=== PATIENT | female | born 1950 | race Caucasian/White ===

== ENCOUNTER 2021-01-06 11:14 | Outpatient (CLI) | payer MEDICARE, SELFPAY ==
--- NOTE | 2021-01-06 11:25 | MM_ITS ---
WS: [id number] BILATERAL DIGITAL SCREENING MAMMOGRAPHY WITH CAD CLINICAL INFORMATION: SCREENING HISTORY: Screening mammogram. No current complaints. COMPARISON: TECHNIQUE: Bilateral CC and MLO views. FINDINGS: Scattered fibroglandular densities bilaterally. No suspicious focal mass, asymmetry, calcifications, or architectural distortion. No evidence of malignancy. Punctate and lucent centered calcifications. Eggshell Calcifications. MM/[place] [id number] IMPRESSION: BI-RADS: 2-Benign FOLLOW UP: 1 Year Follow-up Recommend return to annual screening mammography.
== END 2021-01-06 11:15 | disposition home or self-care (01) ==
LOC: RADSHAW 11:20
PROVIDERS: PCP Internal Medicine; Visit Provider Internal Medicine
DX: Z12.31 Encounter for screening mammogram for malignant neoplasm of breast (principal)
CPT/HCPCS: 77067

== ENCOUNTER → 2021-03-23 15:00 | Outpatient (BNVA) | payer MEDICARE, SELFPAY | PROVIDERS: PCP Internal Medicine; Visit Provider Nurse Practitioner | DX: Z20.822 Contact with and (suspected) exposure to COVID-19 (principal) | CPT/HCPCS: 87635 ==

== ENCOUNTER 2021-09-23 15:09 | Observation (INO) | payer MEDICARE, MEDICAID, SELFPAY ==
[2021-09-22 11:52] VITALS: BMI 25.7
[2021-09-23] VITALS (12 sets, daily range): BP systolic 118–165; BP diastolic 62–84; PULSE 72–87; RESP 12–19; TEMP 36.3–36.8; O2SAT 92–99; BMI 25.7
[2021-09-23] MEDS: sodium chloride 0.9% 1,000 ML 30 ML IV (09:43)
[2021-09-23] MEDS: ketorolac 30 mg/mL INJ IVP ×3 (09:44→21:57)
[2021-09-23] MEDS: gabapentin 300 mg Capsule PO (09:44)
[2021-09-23] MEDS: phenazopyridine 100 mg Tablet 200 MG PO (09:44)
[2021-09-23] MEDS: CELEcoxib 200 mg Capsule 400 MG PO (09:44)
[2021-09-23 09:49] LABS: Basophils # 0.1 10^3/uL (0.0-0.1); Basophils % 0.9 %; Eosinophils # 0.4 10^3/uL (0.0-0.8); Hematocrit 45.3 % (37.0-47.0); Hemoglobin 14.2 g/dL (11.5-15.3); Lymphocytes # 2.3 10^3/uL (0.8-4.8); Lymphocytes % 26.1 %; Mean Corpuscular HGB Conc 31.3 g/dL (30.0-36.0); Mean Corpuscular Hemoglobin 27.5 pg (28.0-34.0); Mean Corpuscular Volume 87.6 fl (81-99); Monocytes # 0.5 10^3/uL (0.2-0.9); Monocytes % 6.1 %; Neutrophils % 62.3 %; Nucleated Red Blood Cells % 0 %; Platelet Count 264 10^3/cmm (130-400); Red Blood Count 5.17 10^6/uL (4.1-5.3); Red Cell Distribution Width 14.3 % (12.1-15.1); White Blood Count 8.8 10^3/uL (4.0-10.0)
[2021-09-23 09:49] LABS: Glucose Point of Care 112 mg/dL (70-110)
[2021-09-23] MEDS: scopolamine 1.5 Patch 1 PATCH TRANSDERMA (09:50)
[2021-09-23] MEDS: acetaminophen 1,000 MG/100 ML PIGGYBACK 400 MG IV (10:01)
--- NOTE | 2021-09-23 10:25 | ECG_ITS ---
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 Measurements Intervals [place] Rate: P: ID: QRS: QRSD: T: QT: QTc: Interpretive Statements SINUS RHTYHM Compared to ECG 06/17/2015 10:02:23 T-wave abnormality no longer present Myocardial infarct finding no longer present Electronically Signed On 09-23-2021 17:59:47 CDT by Don Calhoun M.D. [id number]
--- NOTE | 2021-09-23 10:29 | ANES.PREANE2 ---
Pre-Anesthetic Assessment Height/Weight: Height 1.68 m Weight 72.121 kg Temp Pulse Resp BP Pulse Ox 97.4 F L 87 17 165/84 96 09/23/21 09:19 09/23/21 09:19 09/23/21 09:19 09/23/21 09:19 09/23/21 09:19 Preop Diagnosis: uterine prolapse, cystocele, stress incontinence Operation Date: 09/23/21 11:10 Proposed Procedures p Laparoscopic assisted vaginal hysterectomy, bilateral salpingo-oophorectomy 28384, anterior and posterior repair 17547, mid urethral sling 00669,N39.3,N81.2(Not Applicable) - Dimple Perez MD s Anterior Repair(Not Applicable) - Dimple Perez MD s Posterior Repair(Not Applicable) - Dimple Perez MD s Sling(Not Applicable) - Dimple Perez MD Familial anesthetic complications: None Was Beta Shi taken within 24 hours: N/A Was Clonidine taken within 24 hours: N/A Last intake: Intake Last Liquid Date 09/22/21 Last Liquid Time 20:30 Last Solid Date 09/22/21 Last Solid Time 20:30 Social No alcohol and No tobacco Exam alert, oriented x 3, clear to auscultation bilaterally and regular rate & rhythm Airway Submandibular: within normal limits Cervical ROM: within normal limits Mallampati: Class I Dentition: false History/ROS No significant complaints Pulmonary None reported CV/HEM Hypertension stress incontinence uterine prolapse cystocele Hepatic None reported GI None reported Metabolic Diabetes Mellitus [facility] None reported Neuropsych Depression Anesthetic Plan ASA status: 2 Anesthesia: Anesthesia Evaluation and General Other: We discussed risk and benefits of general anesthesia including PONV, sore throat (sometimes severe), corneal abrasion, positioning and peripheral nerve injuries, life threatening allergic reaction, post operative ICU admission requiring prolonged intubation, stroke, heart attack, , and rare incidences of recall. Patient consents to proceed with general anesthesia. Risk of > 500 ml blood loss (7ml/kg in children): No Other Pertinent Information Pre op EKG pending Medications/Allergies Home Medications Medication Instructions Recorded Confirmed Last Taken Type atorvastatin 20 mg tablet 20 mg PO DAILY 04/28/21 09/23/21 09/22/21 08:30 History cetirizine 10 mg capsule (Allergy 10 mg PO DAILY PRN 04/28/21 09/23/21 09/22/21 08:30 History Relief (cetirizine)) empagliflozin 10 mg tablet 10 mg PO DAILY 04/28/21 09/23/21 09/22/21 08:30 History (Jardiance) gabapentin 100 mg capsule 100 mg PO 1XD 04/28/21 09/23/21 09/22/21 08:30 History levothyroxine 50 mcg tablet 50 mcg PO DAILY 04/28/21 09/23/21 09/22/21 08:30 History (Euthyrox) lisinopril 20 1 tab PO DAILY 04/28/21 09/23/21 09/22/21 08:30 History mg-hydrochlorothiazide 25 mg tablet metformin 1,000 mg tablet 1,000 mg PO BID 04/28/21 09/23/21 09/22/21 08:30 History nortriptyline 50 mg capsule 50 mg PO DAILY 04/28/21 09/23/21 09/22/21 08:30 History omeprazole 40 mg capsule,delayed 40 mg PO DAILY 04/28/21 09/23/21 09/23/21 08:30 History release clobetasol 0.05 % topical ointment 1 applic TOPICAL BID 14 Days #60 g 05/07/21 09/23/21 09/22/21 Rx triamcinolone acetonide 0.1 % 1 applic TOPICAL BID #80 g 05/07/21 09/23/21 Unknown Rx topical ointment liraglutide 0.6 mg/0.1 mL (18 mg/3 1.2 mg SUBCUT DAILY 07/08/21 09/23/21 09/22/21 08:30 History mL) subcutaneous pen injector (Victoza 2-Omar) cyclobenzaprine 10 mg tablet 10 mg PO BEDTIME tab 08/25/21 09/23/21 09/21/21 08:30 History aspirin 81 mg tablet 81 mg PO DAILY 09/22/21 09/23/21 09/22/21 08:30 History insulin degludec 200 unit/mL (3 70 unit SUBCUT DAILY 09/22/21 09/23/21 09/22/21 08:30 History mL) subcutaneous pen (Tresiba FlexTouch U-200 insulin) Allergies Allergy/AdvReac Type Severity Reaction Status Date / Time insulin glargine Allergy rash Verified 09/23/21 09:29 [From Lantus U-100 Insulin] prinizide Allergy rash Uncoded 09/23/21 09:29 Current Medications Generic Name Dose Route Start Last Admin Trade Name Freq PRN Reason Stop Dose Admin Sodium Chloride 1,000 mls @ 30 mls/hr 09/23/21 09:15 09/23/21 09:43 Sodium Chloride 0.9% IV 09/24/21 09:14 30 mls/hr .Q24H WENCESLAO Administration PFSH Anesthesia Medical History Depression Diabetes Essential (primary) hypertension Hyperlipidemia Surgical History History of cholecystectomy History of tubal ligation 1985 Family History Sister Breast cancer Diabetes Hypertension Mother Diabetes Heart disease Hypercholesteremia Hypertension Stroke Brother Diabetes Hypercholesteremia Hypertension Denies family history of Colon cancer Ovarian cancer Bleeding disorder Uterine cancer Thyroid disease Data Anesthesia : 09/23/21 09:35 09/23/21 09:35 Short CBC 09/23/21 Range/Units 09:35 WBC 8.8 (4.0-10.0) 10^3/uL Hgb 14.2 (11.5-15.3) g/dL Hct 45.3 (37.0-47.0) % MCV 87.6 (81-99) fl Plt Count 264 (130-400) 10^3/cmm Neut % (Auto) 62.3 % Neut # (Auto) 5.50 (1.8-7.7) 10^3/uL BMP 09/23/21 09:35 Sodium Cancelled Potassium Cancelled Chloride Cancelled Carbon Dioxide Cancelled BUN Cancelled Creatinine Cancelled Glucose Cancelled Calcium Cancelled Blood Bank 09/23/21 09:35 Blood Type O Positive Rho(D) Type Positive Cardiac Studies: No Data to Display
[2021-09-23 11:15] LABS: Anion Gap 11.4 (5-19); Blood Urea Nitrogen 18 mg/dL (8-23); Calcium 9.2 mg/dL (8.5-10.5); Carbon Dioxide 31 mmol/L (22-29); Chloride 104 mmol/L (98-107); Glucose 120 mg/dL (65-115); Osmolality Calculated 297 mOsm/kg (285-295); Potassium 4.4 mmol/L (3.5-5.1); Sodium 142 mmol/L (136-145)
--- NOTE | 2021-09-23 12:04 | W.PM.OPSUD ---
Surgery/Procedure H&P Update DATE OF PROCEDURE: September 23, 2021 DATE H&P PERFORMED: 09/19/21 H&P UPDATE INFORMATION: I have reviewed H&P completed within last 30 days, I have examined patient prior to procedure and No changes to prior documentation PREOP DIAGNOSIS: uterine prolapse, cystocele, stress incontinence PLANNED PROCEDURE: Operation Date: 09/23/21 11:10 Proposed Procedures p Laparoscopic assisted vaginal hysterectomy, bilateral salpingo-oophorectomy 19996, anterior and posterior repair 25213, mid urethral sling 61525,N39.3,N81.2(Not Applicable) - Dimple Perez MD s Anterior Repair(Not Applicable) - Dimple Perez MD s Posterior Repair(Not Applicable) - Dimple Perez MD s Sling(Not Applicable) - Dimple Perez MD Related Problem List Diagnoses (1) Stress incontinence: (2) Uterine prolapse: (3) Cystocele:
[2021-09-23] MEDS: vasopressin 20 unit/mL INJ INJECTION (14:35)
--- NOTE | 2021-09-23 14:44 | P.OP_ITS ---
Operative Report Date of procedure: September 23, 2021 Pre-op diagnosis: Preop Diagnosis uterine prolapse, cystocele, stress incontinence Post-op diagnosis: same Post-op findings: enlarged uterus, normal appearing tubes and ovaries Procedure done: LAVH, BSO, cystoscopy Specimens removed/disposition: Uterus, tubes and ovaries to pathology Surgeon: Dimple Perez Anesthesia: General Estimated blood loss (mL): 50 IV fluids (mL): 1,200 Urine output (mL): 300 Complications: none Condition: stable Disposition: floor Procedure: The patient was taken to the operating room where general anesthesia was administered and found to be adequate. She was prepped and draped in the normal sterile fashion in the dorsal lithotomy position in [facility]. A Grider catheter was placed. A weighted speculum was placed into the vagina and the anterior lip of the cervix was grasped with a single tooth tenaculum. The Zumi uterine manipulator was placed. The weighted speculum was removed. The gloves were changed and attention was turned to the abdomen. A 5 mm supraumbilical incision was made. Using a 5 mm port with the camera, the port was placed into the abdomen. The abdomen was insufflated. Two low, lateral 5 mm ports were placed on the left and right under direct visualization from the camera. The right tube was grasped and elevated. Using the laparoscopic cautery, the infundibulopelvic ligament was cauterized and I continued to cauterized up to the uterus. The uteroovarian ligament was cauterized and the tube and ovary dropped onto the anterior of the uterus. The left was performed in the same way. The uteroovarian ligaments as well as the round ligaments were ligated. Attention was then turned to the vaginal portion of the procedure. The weighted speculum was placed into the vagina. The zumi manipulator was removed. The single tooth tenaculum was removed and replaced with the annie's tenaculum. 10 mL of dilute Pitressin was injected at the vesicovaginal junction. A circumferential incision was made at the vesicovaginal junction and the vaginal mucosa reflected cephalad. The posterior peritoneum was entered sharply with the Metzenbaum scissors and the long weighted speculum replaced. Using the [place] clamps the uterosacral ligaments were clamped cut and suture- ligated. The anterior peritoneum was entered sharply with the metzenbaum scissors. Then sequentially the uterine arteries and cardinal ligaments were clamped cut and suture-ligated. A single-tooth tenaculum was used to deliver the uterus. The remaining segement of the utero-ovarian ligaments were clamped cut and suture-ligated bilaterally and the specimen was removed. There was good hemostasis with only mild bleeding from the cuff. The peritoneum was closed with a pursestring using 2-0 Vicryl. The vaginal cuff was closed with 0 Vicryl in a running locked pattern incorporating the uterosacral ligaments into the lateral aspects of the vaginal cuff. The Grider catheter was removed and the cystoscope advanced into the bladder. The patient was given pyridium and bilateral spill was noted. There were no injuries or deficits noted in the bladder. The cystoscope was removed and the Grider was replaced. The previous cystocele was significantly smaller post surgery. The was no incontinence post hysterectomy as well. Vaginal packing was placed for good hemostasis. The gloves and gowns were changed and attention was turned to the abdomen. The ports were closed with 2-0 monocryl with skin glue. The patient tolerated the procedure well. Sponge lap and needle counts were correct x3. She was taken to the recovery room in stable condition.
--- NOTE | 2021-09-23 15:10 | PC.NURSE ---
1458 bilateral scds on pump and pump working.
--- NOTE | 2021-09-23 15:37 | ANE.PACU2 ---
Inpatient post-anesthesia follow up: Airway intact: Yes Vital signs: Temperature 97.3 F Pulse Rate 80 Respiratory Rate 16 Blood Pressure 133/70 Pulse Oximetry 92 Oxygen Delivery Me thod Nasal Cannula Oxygen Flow Rate 2 Fraction of Inspir ed Oxygen Hydration adequate: Yes Nausea and vomiting: No Pain level: 1 Mental status: Baseline
[2021-09-23] MEDS: dextrose 5%-lactated ringers 1,000 ML 125 ML IV (17:23)
[2021-09-23] MEDS: metformin 500 mg Tablet 1000 MG PO (17:23)
[2021-09-23] MEDS: HYDROcodone-acetaminophen 5-325 mg Tablet PO ×2 (17:24→18:52)
[2021-09-23] MEDS: docusate sodium 100 mg Capsule PO (17:24)
[2021-09-23] MEDS: gabapentin 100 mg Capsule PO (21:58)
[2021-09-23 22:28] LABS: Glucose Point of Care 258 mg/dL (70-110)
[2021-09-23] MEDS: insulin lispro 100 unit/1 mL SUBCUT (22:40)
[2021-09-24] MEDS: ketorolac 30 mg/mL INJ IVP (03:56)
[2021-09-24 04:21] VITALS: BP 106/90; PULSE 79; TEMP 36.8; O2SAT 93
[2021-09-24 06:33] LABS: Hematocrit 35.3 % (37.0-47.0); Hemoglobin 11.5 g/dL (11.5-15.3); Mean Corpuscular HGB Conc 32.6 g/dL (30.0-36.0); Mean Corpuscular Hemoglobin 27.8 pg (28.0-34.0); Mean Corpuscular Volume 85.3 fl (81-99); Mean Platelet Volume 11.3 fL (7.4-10.4); Platelet Count 248 10^3/cmm (130-400); Red Blood Count 4.14 10^6/uL (4.1-5.3); Red Cell Distribution Width 14.4 % (12.1-15.1); White Blood Count 14.2 10^3/uL (4.0-10.0)
--- NOTE | 2021-09-24 10:08 | PM.DCS ---
Discharge Providers Date of Admission: 09/23/21 15:09 Date of Discharge: September 24, 2021 Attending Provider at Admission: Dimple Perez MD Attending Provider at Discharge: Dimple Perez MD Primary Care Provider: Jacque Moreno MD Diagnoses at Discharge Discharge Diagnosis (1) Stress incontinence: Status: Acute (2) Uterine prolapse: Status: Acute (3) Cystocele: Status: Acute Hospital Course Hospital Course The patient was admitted for surgery. She did well postoperatively and was ready for discharge on day #1 Physical Exam Narrative: no concerns this morning Const: COMMON NORMALS: no acute distress, average body habitus, patient oriented x3, no limitations, healthy appearing, alert and well nourished GENERAL APPEARANCE: cooperative, comfortable, well kempt and well developed ORIENTATION/CONSCIOUSNESS: Yes awake, Yes oriented to person, Yes oriented to place and Yes oriented to time Resp: COMMON NORMALS: normal respiratory effort EFFORT & INSPECTION: Yes able to speak in complete sentences GI: COMMON NORMALS: Soft to palpation and non-tender PALPATION: Yes Soft to palpation Extremity: COMMON NORMALS: no calf tenderness Neuro: COMMON NORMALS: patient oriented x3 SENSORIUM/ORIENTATION: Yes alert, Yes oriented to person, Yes oriented to place and Yes oriented to time Psych: APPEARANCE: Yes well kempt Urinary Catheter Management: Grider: Cath Placed During This Visit: yes, but has since been removed by the nurse Reason for Continuing Indwelling Catheter: Decision to DC Catheter Urinary Catheter Date of Insertion: 09/23/21 Urinary Catheter Time of Insertion: 12:40 Date Urinary Catheter Removed: 09/24/21 Time Urinary Catheter Discontinued: 06:10 Discharge Data Studies Completed and Pending Pending at discharge Category Date Time Status ES surgery / GI images Routine Exams 09/23/21 10:49 Taken Urine Culture Routine Lab 09/23/21 12:40 Received Pathology: Surgical [PTH] Routine Pth 09/23/21 14:46 Received Laboratory Results WBC 14.2 10^3/uL (4.0-10.0) H 09/24/21 06:01 RBC 4.14 10^6/uL (4.1-5.3) 09/24/21 06:01 Hgb 11.5 g/dL (11.5-15.3) 09/24/21 06:01 Hct 35.3 % (37.0-47.0) L 09/24/21 06:01 MCV 85.3 fl (81-99) 09/24/21 06:01 MCH 27.8 pg (28.0-34.0) L 09/24/21 06:01 MCHC 32.6 g/dL (30.0-36.0) 09/24/21 06:01 RDW 14.4 % (12.1-15.1) 09/24/21 06:01 Plt Count 248 10^3/cmm (130-400) 09/24/21 06:01 MPV 11.3 fL (7.4-10.4) H 09/24/21 06:01 Neut % (Auto) 62.3 % 09/23/21 09:35 Lymph % (Auto) 26.1 % 09/23/21 09:35 [place] % (Auto) 6.1 % 09/23/21 09:35 Eos % (Auto) 4.0 % 09/23/21 09:35 Baso % (Auto) 0.9 % 09/23/21 09:35 Neut # (Auto) 5.50 10^3/uL (1.8-7.7) 09/23/21 09:35 Lymph # (Auto) 2.3 10^3/uL (0.8-4.8) 09/23/21 09:35 [place] # (Auto) 0.5 10^3/uL (0.2-0.9) 09/23/21 09:35 Eos # (Auto) 0.4 10^3/uL (0.0-0.8) 09/23/21 09:35 Baso # (Auto) 0.1 10^3/uL (0.0-0.1) 09/23/21 09:35 Nucleated RBC % (auto) 0 % 09/23/21 09:35 Nucleated RBCs # 0.0 /100WBC 09/23/21 09:35 Sodium 142 mmol/L (136-145) 09/23/21 10:29 Potassium 4.4 mmol/L (3.5-5.1) 09/23/21 10:29 Chloride 104 mmol/L (98-107) 09/23/21 10:29 Carbon Dioxide 31 mmol/L (22-29) H 06/07/22 10:29 Anion Gap 11.4 (5-19) 09/23/21 10:29 BUN 18 mg/dL (8-23) 09/23/21 10:29 Creatinine 0.6 mg/dL (0.5-0.9) 09/23/21 10:29 GFR Calculation Not Reportable 09/23/21 10:29 Glucose 120 mg/dL (65-115) H 09/23/21 10:29 POC Glucose 258 mg/dL (70-110) H 09/23/21 22:22 Calculated Osmolality 297 mOsm/kg (285-295) H 09/23/21 10:29 Calcium 9.2 mg/dL (8.5-10.5) 09/23/21 10:29 Blood Type O Positive 09/23/21 09:35 Rho(D) Type Positive 09/23/21 09:35 Antibody Screen Negative 09/23/21 09:35 Vitals Last Vital Signs Temp 98.2 F 09/24/21 04:21 Pulse 79 09/24/21 04:21 Resp 18 09/23/21 15:45 BP 106/90 09/24/21 04:21 Pulse Ox 93 09/24/21 04:21 Discharge Plan Discharge Patient Disposition: Home Condition: Stable Prescriptions: New ibuprofen 800 mg Tablet 800 mg PO Q8H Qty: 40 0RF hydrocodone-acetaminophen 5-325 mg Tablet 1 tab PO Q4H PRN (Reason: Moderate To Severe Pain) Qty: 20 0RF docusate sodium 100 mg Capsule 100 mg PO BID Qty: 60 0RF Continued Allergy Relief (cetirizine) 10 mg capsule 10 mg PO DAILY PRN (Reason: Allergy Symptoms) 0RF lisinopril-hydrochlorothiazide 20-25 mg tablet 1 tab PO DAILY 0RF omeprazole 40 mg capsule,delayed release(DR/EC) 40 mg PO DAILY 0RF Jardiance 10 mg tablet 10 mg PO DAILY 0RF nortriptyline 50 mg capsule 50 mg PO DAILY 0RF gabapentin 100 mg capsule 100 mg PO 1XD 0RF atorvastatin 20 mg tablet 20 mg PO DAILY 0RF metformin 1,000 mg tablet 1,000 mg PO BID 0RF levothyroxine [Euthyrox] 50 mcg tablet 50 mcg PO DAILY 0RF clobetasol 0.05 % ointment 1 applic topical BID 14 Days Qty: 60 1RF Rx Instructions: start: to affected areas on legs no more than 2 wks/mo prn alternating with triamcinolone triamcinolone acetonide 0.1 % ointment 1 applic topical BID Qty: 80 1RF Rx Instructions: to leg BID alt. with clobetasol as needed for flares no more than 2 wks/mo Victoza 2-Omar 0.6 mg/0.1 mL (18 mg/3 mL) pen injector 1.2 mg SUBCUT DAILY 0RF cyclobenzaprine 10 mg tablet 10 mg PO BEDTIME 0RF aspirin 81 mg Tablet 81 mg PO DAILY 0RF Tresiba FlexTouch U-200 200 unit/mL (3 mL) insulin pen 70 unit SUBCUT DAILY 0RF Rx Instructions: 40 units in the AM and 30 units in the PM Discharge Orders: Discharge Order (Routine); Ordered 09/24/21 Ordered By: Dimple Perez Patient Instructions: Urinary Incontinence (GEN), Cystocele (GEN), Uterine Prolapse (GEN), Laparoscopic Hysterectomy (GEN), OB Discharge Report, OB Laproscopic Surgery - [facility], OB Food/Drug Interaction Guide, Opioid Safety Discharge Attestations Time Spent in Discharge Care*: less than 30 min Quality Metrics Clinical Quality Measures [ No reported AMI, CVA or VTE this stay] Coding Level of Care Code Acute Chg DC note Diagnoses Stress incontinence N39.3 Uterine prolapse N81.4 Cystocele
[2021-09-24] MEDS: metformin 500 mg Tablet 1000 MG PO (10:11)
[2021-09-24] MEDS: nortriptyline 25 mg Capsule 50 MG PO (10:11)
[2021-09-24] MEDS: lisinopril 20 mg Tablet PO (10:12)
[2021-09-24] MEDS: docusate sodium 100 mg Capsule PO (10:12)
[2021-09-24] MEDS: hydroCHLOROthiazide 25 mg Tablet PO (10:12)
[2021-09-24] MEDS: pantoprazole DR 40 mg Tablet PO (10:14)
[2021-09-24 10:15] VITALS: BP 127/71; PULSE 73; RESP 16; TEMP 36.9; O2SAT 94
[2021-09-24] MEDS: atorvastatin 40 mg Tablet 20 MG PO (10:19)
== END 2021-09-24 11:40 | disposition home or self-care (01) ==
LOC: OBGYN 15:22
PROVIDERS: Admitting Provider Obstetrics & Gynecology; PCP Internal Medicine; Visit Provider Obstetrics & Gynecology
PROC: 0UT9FZZ Resection of Uterus, Via Natural or Artificial Opening With Percutaneous Endoscopic Assistance (ICD-10-PCS; CPT 58550; principal; 2021-09-23 11:00)
PROC: (CPT 58661; 2021-09-23 11:00)
PROC: 0TJB8ZZ Inspection of Bladder, Via Natural or Artificial Opening Endoscopic (ICD-10-PCS; CPT 52000; 2021-09-23 11:00)
DX: N81.4 Uterovaginal prolapse, unspecified (principal); I10 Essential (primary) hypertension; E11.9 Type 2 diabetes mellitus without complications; Z79.84 Long term (current) use of oral hypoglycemic drugs; Z79.4 Long term (current) use of insulin; E78.5 Hyperlipidemia, unspecified
CPT/HCPCS: 58550; 36415; 36416; 80048; 82962; 85025; 85027; 86850; 86900; 87086; 88305; 93005; 96372; G0378; J1100; J1170; J1200; J1815; J1885; J2370; J2405; J2704; J2710; J3010; J3490; J7030

== ENCOUNTER → 2021-11-03 09:06 | Outpatient (BNVA) | payer MEDICARE, SELFPAY | PROVIDERS: PCP Internal Medicine; Visit Provider Obstetrics & Gynecology | DX: R39.15 Urgency of urination (principal); Z98.890 Other specified postprocedural states | CPT/HCPCS: 81000 ==

== ENCOUNTER 2022-07-30 09:37 | Outpatient (CLI) | payer MEDICARE, MEDICAID, SELFPAY ==
--- NOTE | 2022-07-30 09:59 | USCV_ITS ---
Lady Reagan Age: 71 Gender: F : 1950 Exam Date: 07/30/2022 10:13 Ordering Phys: Jacque Moreno MD Technologist: Exam Location: [facility] Indication: cca stenosis Risk Factors: Previous Vascular Surgery: Right Brachial BP: / Left Brachial BP: / Right Left Velocity (cm/s) Spectral Plaque Velocity (cm/s) Spectral Plaque Syst/Diast Broadening Syst/Diast Broadening 55.10/ 13.20 Prox CCA 57.80 / 12.50 42.70/ 10.10 Mid CCA 56.50 / 11.20 54.40/ 13.20 Distal CCA 51.90 / 12.50 67.30/ 15.40 Prox ICA 62.30 / 15.60 90.40/ 24.30 Mid ICA 74.20 / 18.50 74.30/ 24.80 Distal ICA 74.20 / 20.80 110.30 ECA 66.00 1.64 ICA/CCA 1.28 Antegrade Vertebral Antegrade 48.60/ 5.30 cm/s 36.70/ 8.60 cm/s Tri Subclavian Tri 59.80 63.70 FINDINGS torturous CONCLUSIONS Right ICA stenosis <50%. Mild atheromatous plaque right carotid bulb/ICA. Left ICA stenosis <50%. Moderate atheromatous plaque left carotid bulb/ICA. Normal antegrade Doppler flow noted in the right vertebral artery. Normal antegrade Doppler flow noted in the left vertebral artery. Josr Mcrae MD (Electronically Signed) Final Date: 30 July 2022 12:39 S
== END 2022-07-30 09:38 | disposition home or self-care (01) ==
LOC: RAD 09:45
PROVIDERS: PCP Internal Medicine; Visit Provider Internal Medicine
DX: I65.23 Occlusion and stenosis of bilateral carotid arteries (principal)
CPT/HCPCS: 93880

== ENCOUNTER 2022-09-14 09:55 | Emergency (ER) | payer MEDICARE, MEDICAID, SELFPAY ==
[2022-09-14] VITALS (7 sets, daily range): BP systolic 131–173; BP diastolic 74–90; PULSE 76–83; RESP 13–20; TEMP 36.8; O2SAT 94–99; BMI 23.8
--- NOTE | 2022-09-14 10:19 | ECG_ITS ---
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 Measurements Intervals [place] Rate: 86 P: 60 UT: 147 QRS: 14 QRSD: 113 T: 105 QT: 384 QTc: 461 Interpretive Statements SINUS RHYTHM LOW QRS VOLTAGE IN PRECORDIAL LEADS [QRS DEFLECTION < 1.0 mV IN CHEST LEADS] MODERATE INTRAVENTRICULAR CONDUCTION DELAY [110+ ms QRS DURATION] MODERATE ST DEPRESSION [0.05+ mV ST DEPRESSION] ABNORMAL QRS-T ANGLE [QRS-T AXIS DIFFERENCE > 60] Compared to ECG 09/23/2021 09:38:10 Low QRS voltage now present Intraventricular conduction delay now present ST (T wave) deviation now present Electronically Signed On 09-14-2022 23:27:12 CDT by Don Calhoun M.D. [id number]
--- NOTE | 2022-09-14 10:19 | XRR_ITS ---
PROCEDURE INFORMATION: Exam: XR Chest Exam date and time: 09/14/2022 9:24 AM Age: 71 years old Clinical indication: Pain; Chest pressure; Additional info: Chest pain TECHNIQUE: Imaging protocol: Radiologic exam of the chest. Views: 1 view. COMPARISON: ES surgery / GI images 09/23/2021 12:42 PM FINDINGS: Lungs: Unremarkable. No consolidation. Pleural spaces: Unremarkable. No pleural effusion. No pneumothorax. Heart/Mediastinum: Unremarkable. No cardiomegaly. Bones/joints: Unremarkable for age. XR/XR chest 1V portable [id number] IMPRESSION: Negative chest exam.
--- NOTE | 2022-09-14 10:20 | W.ED.CHESTPA ---
HPI - Chest Pain General: Chief Complaint: Chest Pain Stated Complaint: chest pains Time Seen by Provider: 09/14/22 10:19 History of Present Illness: Patient presents to the ER with complaints of epigastric pain that radiates to her back. Patient states his pain started 530 this morning and has eased up and got worse but is never totally gone away. Patient did say she took a nitro pill at 7 AM and she thought did provide some relief. Patient denies any other symptoms or complaints at this time MD complaint: chest pain (Epigastric pain) Onset (ago): hour(s) (4 hours ago) Prior episodes: No Pain location: epigastric Pain radiation: back Severity: moderate Quality: aching and burning Relieving factors: nothing Exacerbating factors: palpation Associated symptoms: Reports abdominal pain Treatment prior to arrival: none Review of Systems General: Reports: 10 or more systems reviewed and unremarkable except in HPI and below GI: Reports: abdominal pain PFSH ED PFSH: Medical History Depression Diabetes Essential (primary) hypertension Hyperlipidemia Surgical History History of cholecystectomy History of tubal ligation 1985 Family History Sister Breast cancer Diabetes Hypertension Mother Diabetes Heart disease Hypercholesteremia Hypertension Stroke Brother Diabetes Hypercholesteremia Hypertension Denies family history of Colon cancer Ovarian cancer Bleeding disorder Uterine cancer Thyroid disease Physical Exam Const: COMMON NORMALS: no acute distress, average body habitus, patient oriented x3, no limitations, healthy appearing, alert and well nourished HENMT: COMMON NORMALS: normocephalic, atraumatic, hearing grossly normal bilaterally, external ears normal, Normal external nose present and moist oral mucous membranes HEAD & SCALP: normocephalic and atraumatic NOSE: Normal external nose present EXTERNAL EAR: Yes external ears normal Eye: COMMON NORMALS: Equal, round and reactive pupils present, EOMs intact bilaterally, conjunctivae normal and no scleral icterus CONJUNCTIVA: Yes conjunctivae normal PUPIL: Yes Equal, round and reactive pupils present Neck/C-Spine: COMMON NORMALS: full ROM, no lymphadenopathy, supple, no meningeal signs, no JVD and Thyroid normal THYROID: Thyroid normal Lymph: LYMPHATIC: no lymphadenopathy noted Chest: COMMONS NORMALS: normal inspection of the chest and normal palpation of entire chest wall Resp: COMMON NORMALS: normal respiratory effort, No retractions, No use of accessory muscles and clear to auscultation bilaterally AUSCULTATION: clear to auscultation bilaterally Cardio: COMMON NORMALS: no JVD, regular rate, regular rhythm, S1 normal heart sound present, S2 normal heart sound present, No gallops present (Cardio), No clicks present (Cardio), No murmurs present (Cardio) and No rub (Cardio) RATE: regular rate RHYTHM: regular rhythm HEART SOUNDS: S1 normal heart sound present and S2 normal heart sound present GI: COMMON NORMALS: Normal to inspection, nondistended, normoactive bowel sounds present, non-tender, No hepatosplenomegaly present and no masses PALPATION: Yes Tenderness to palpation present (GI) (Epigastric area produces the pain) and Yes No hepatosplenomegaly present : COMMON NORMALS: Yes no CVA tenderness BLADDER/KIDNEY EXAM: Yes no CVA tenderness Back/Pelvis: COMMON NORMALS: no CVA tenderness Extremity: COMMON NORMALS: normal to inspection Neuro: COMMON NORMALS: patient oriented x3 SENSORIUM/ORIENTATION: Yes alert MENINGEAL SIGNS: Yes no meningeal signs Course Vital Signs: Vital signs: Vital Signs Temperature 98.2 F 09/14/22 10:08 Pulse Rate 76 09/14/22 13:41 Respiratory Rate 15 09/14/22 13:41 Blood Pressure 139/77 09/14/22 13:41 Pulse Oximetry 95 09/14/22 13:41 Oxygen Delivery Me thod Room Air 09/14/22 10:08 MDM - Chest Pain Medical Decision Making presents for chest pain radiating to the back. Patient said this started about 530 this morning comes and goes when it comes up to 10 out of 10. Patient took a nitro pill at home and did not help. Chest pain work-up was instituted with serial EKGs and did not show any ST segment elevation and serial cardiac enzymes which were benign. Patient's liver enzymes were elevated, her AST was 336, her ALT was 130, her alkaline phosphatase was 181, chest x-ray was negative. He is results was explained to the patient and family members. Is felt that her car chest pain and back pain is not cardiac in nature. Patient will be discharged home to follow-up with her PCP for further evaluation and testing of her elevated liver enzymes. Differential Diagnosis Unlikely acute massive pulmonary embolism, acute respiratory failure, acute myocardial infarction, cardiac arrest or sudden cardiac Medical Records I reviewed the patient's medical records. Patient Lab Data I reviewed the patient's lab results. 09/14/22 10:33 09/14/22 10:33 Radiology Impressions Chest X-Ray 09/14/22 10:19 IMPRESSION: Negative chest exam. Laboratory Results WBC 13.4 10^3/uL (4.0-10.0) H 09/14/22 10:33 RBC 5.19 10^6/uL (4.1-5.3) 09/14/22 10:33 Hgb 14.0 g/dL (11.5-15.3) 09/14/22 10:33 Hct 43.8 % (37.0-47.0) 09/14/22 10:33 MCV 84.4 fl (81-99) 09/14/22 10:33 MCH 27.0 pg (28.0-34.0) L 09/14/22 10:33 MCHC 32.0 g/dL (30.0-36.0) 09/14/22 10:33 RDW 13.4 % (12.1-15.1) 09/14/22 10:33 Plt Count 267 10^3/cmm (130-400) 09/14/22 10:33 MPV 12.1 fL (7.4-10.4) H 09/14/22 10:33 Neut % (Auto) 82.9 % 09/14/22 10:33 Lymph % (Auto) 11.2 % 09/14/22 10:33 [place] % (Auto) 4.3 % 09/14/22 10:33 Eos % (Auto) 0.7 % 09/14/22 10:33 Baso % (Auto) 0.5 % 09/14/22 10:33 Neut # (Auto) 11.09 10^3/uL (1.8-7.7) H 09/14/22 10:33 Lymph # (Auto) 1.5 10^3/uL (0.8-4.8) 09/14/22 10:33 [place] # (Auto) 0.6 10^3/uL (0.2-0.9) 09/14/22 10:33 Eos # (Auto) 0.1 10^3/uL (0.0-0.8) 09/14/22 10:33 Baso # (Auto) 0.1 10^3/uL (0.0-0.1) 09/14/22 10:33 Nucleated RBC % (auto) 0 % 09/14/22 10:33 Nucleated RBCs # 0.0 /100WBC 09/14/22 10:33 PT 12.60 SECONDS (12.1-14.9) 09/14/22 11:22 INR 0.92 (0.8-1.2) 09/14/22 11:22 Sodium 137 mmol/L (136-145) 09/14/22 10:33 Potassium 4.0 mmol/L (3.5-5.1) 09/14/22 10:33 Chloride 97 mmol/L (98-107) L 09/14/22 10:33 Carbon Dioxide 28 mmol/L (22-29) 09/14/22 10:33 Anion Gap 16.0 (5-19) 09/14/22 10:33 BUN 22 mg/dL (8-23) 09/14/22 10:33 Creatinine 0.6 mg/dL (0.5-0.9) 09/14/22 10:33 GFR Calculation Not Reportable 09/14/22 10:33 Glucose 150 mg/dL (65-115) H 09/14/22 10:33 Calculated Osmolality 290 mOsm/kg (285-295) 09/14/22 10:33 Calcium 9.9 mg/dL (8.5-10.5) 09/14/22 10:33 Total Bilirubin 0.8 mg/dL (0.15-1.2) 09/14/22 10:33 AST 336 U/L (0-32) H 09/14/22 10:33 ALT 130 U/L (0-33) H 09/14/22 10:33 Alkaline Phosphatase 181 U/L (35-105) H 09/14/22 10:33 Troponin T Baseline 10 ng/L (0-10) 09/14/22 10:33 Troponin T 120 Minute 10.40 ng/L (0-10) H 09/14/22 12:27 Delta Troponin T 0.40 ABS# (0-10) 09/14/22 12:27 NT-Pro-B Natriuret Pep 40 pg/mL (0-125) 09/14/22 10:33 Total Protein 6.8 g/dL (6.6-8.7) 09/14/22 10:33 Albumin 4.4 g/dL (3.5-5.2) 09/14/22 10:33 Globulin 2.4 g/dL (1.3-4.6) 09/14/22 10:33 Lipase 45 U/L (13-60) 09/14/22 10:33 Urine Color Straw (Yellow) 09/14/22 11:50 Urine Appearance Clear (CLEAR) 09/14/22 11:50 Urine pH 8 (5-7) H 09/14/22 11:50 Ur Specific [place] 1.010 (1.005-1.030) 09/14/22 11:50 Urine Protein Neg (Negative) 09/14/22 11:50 Urine Glucose (UA) 4+ (Normal) H 09/14/22 11:50 Urine Ketones Negative (Negative) 09/14/22 11:50 Urine Blood Neg (Negative) 09/14/22 11:50 Urine Nitrate Negative (Negative) 09/14/22 11:50 Urine Bilirubin Neg (Negative) 09/14/22 11:50 Prot Sulfosalicylic Acd Negative (Negative) 09/14/22 11:50 Urine Urobilinogen 1 mg/dL (Negative) H 09/14/22 11:50 Ur Leukocyte Esterase Negative (Negative) 09/14/22 11:50 Urine RBC 0-4 /hpf (0-2) H 09/14/22 11:50 Urine WBC 0-4 /hpf (0-5) H 09/14/22 11:50 Ur Squamous Epith Cells 0-4 /hpf (0-5) H 09/14/22 11:50 Amorphous Sediment Not Reportable 09/14/22 11:50 Urine Bacteria Trace /hpf (NONE) 09/14/22 11:50 EKG Data EKG 1: I personally reviewed and interpreted this EKG as follows: EKG interpretation date: 09/14/22 EKG interpretation time: 10:04 Prior EKG tracings: not available for review Interpretation: EKG showed normal sinus rhythm with a ventricular rate of 86 bpm, WY interval 147, QRS duration 113, QTc 428, moderate interventricular conduction delay, moderate ST depression, abnormal QRST angle EKG 2: I personally reviewed and interpreted this EKG as follows: EKG interpretation date: 09/14/22 EKG interpretation time: 12:27 Prior EKG tracings: available for review Interpretation: EKG showed ventricular rate of 69 bpm, WY interval 130, QRS duration 108, QTc 442, sinus rhythm and ST deviation moderate T wave abnormality with negative T waves in 1 aVL V5 and V6 Discharge Plan Discharge Patient Disposition: Home Clinical Impression: Elevated liver enzymes, Atypical chest pain Condition: Stable Prescriptions: No Action Allergy Relief (cetirizine) 10 mg capsule 10 mg PO DAILY PRN (Reason: Allergy Symptoms) lisinopril-hydrochlorothiazide 20-25 mg tablet 1 tab PO DAILY omeprazole 40 mg capsule,delayed release(DR/EC) 40 mg PO DAILY Jardiance 10 mg tablet 10 mg PO DAILY nortriptyline 50 mg capsule 50 mg PO DAILY gabapentin 100 mg capsule 100 mg PO DAILY atorvastatin 20 mg tablet 20 mg PO DAILY metformin 1,000 mg tablet 1,000 mg PO BID levothyroxine [Euthyrox] 50 mcg tablet 50 mcg PO DAILY Victoza 2-Omar 0.6 mg/0.1 mL (18 mg/3 mL) pen injector 1.2 mg SUBCUT DAILY Aspir-81 81 mg Tablet,Delayed Release (Dr/Ec) 81 mg PO DAILY insulin degludec [Tresiba FlexTouch U-200] 200 unit/mL (3 mL) insulin pen 62 unit SUBCUT DAILY Discharge Orders: Discharge ED (Routine); Ordered 09/14/22 Ordered By: Chay Lora Referrals: Jacque Moreno MD [Primary Care Provider] - 1 week Patient Instructions: Chest Pain (ED) Activity Restrictions/Additional Instructions: Please follow-up with your primary care practitioner in next 7 to 10 days for further work-up and evaluation of your elevated liver enzymes. Coding Level of Care Code ED Physical Sciences Professor for Mihai Ortega
[2022-09-14 10:58] LABS: Basophils # 0.1 10^3/uL (0.0-0.1); Basophils % 0.5 %; Eosinophils # 0.1 10^3/uL (0.0-0.8); Eosinophils % 0.7 %; Hematocrit 43.8 % (37.0-47.0); Lymphocytes # 1.5 10^3/uL (0.8-4.8); Lymphocytes % 11.2 %; Mean Corpuscular Volume 84.4 fl (81-99); Mean Platelet Volume 12.1 fL (7.4-10.4); Monocytes # 0.6 10^3/uL (0.2-0.9); Monocytes % 4.3 %; Neutrophils # 11.09 10^3/uL (1.8-7.7); Neutrophils % 82.9 %; Nucleated Red Blood Cells % 0 %; Platelet Count 267 10^3/cmm (130-400); Red Blood Count 5.19 10^6/uL (4.1-5.3); Red Cell Distribution Width 13.4 % (12.1-15.1); White Blood Count 13.4 10^3/uL (4.0-10.0)
[2022-09-14] MEDS: lidocaine 2% viscous 15 ML, aluminum-mag hydrox-simethicon 30 ML, sucralfate oral liq 1 GM PO (11:07)
[2022-09-14 11:15] LABS: Troponin(5th) Baseline 10 ng/L (0-10)
[2022-09-14 11:35] LABS: Lipase 45 U/L (13-60)
[2022-09-14 11:37] LABS: Alanine Aminotransferase 130 U/L (0-33); Albumin Level 4.4 g/dL (3.5-5.2); Alkaline Phosphatase 181 U/L (35-105); Aspartate Amino Transferase 336 U/L (0-32); Blood Urea Nitrogen 22 mg/dL (8-23); Calcium 9.9 mg/dL (8.5-10.5); Carbon Dioxide 28 mmol/L (22-29); Chloride 97 mmol/L (98-107); Creatinine Clr Calc Pharmacy 64.7625; Globulin 2.4 g/dL (1.3-4.6); Glucose 150 mg/dL (65-115); NT Pro B Type Natriuretic Pept 40 pg/mL (0-125); Osmolality Calculated 290 mOsm/kg (285-295); Sodium 137 mmol/L (136-145); Total Bilirubin 0.8 mg/dL (0.15-1.2); Total Protein 6.8 g/dL (6.6-8.7)
[2022-09-14 11:57] LABS: INR 0.92 (0.8-1.2)
--- NOTE | 2022-09-14 12:27 | ECG_ITS ---
[facility] Test Date: 2022-09-14 Pat Name: Lady Reagan Department: Room: Gender: Female Clinical Research Management Associate: : 1950 Requested By: Chay Lora Order Number: [id number] Oliver MD: Don Calhoun M.D. Measurements Intervals [place] Rate: 69 P: 48 MN: 130 QRS: 14 QRSD: 108 T: 122 QT: 423 QTc: 455 Interpretive Statements SINUS RHYTHM ST DEVIATION AND MODERATE T-WAVE ABNORMALITY, CONSIDER LATERAL ISCHEMIA [-0.1+ mV T-WAVE IN I/aVL/V5/V6] Compared to ECG 09/14/2022 10:04:16 T-wave abnormality now present Possible ischemia now present Intraventricular conduction delay no longer present ST (T wave) deviation no longer present Electronically Signed On 09-15-2022 8:31:00 CDT by Don Calhoun M.D. [id number]
[2022-09-14 12:30] LABS: Protein Urine Neg (Negative); Urine Appearance Clear (CLEAR); Urine Color Straw (Yellow); pH Urine 8 (5-7)
[2022-09-14 12:31] LABS: Add Urine Microscopic? YES; Bacteria Urine TRACE /hpf; Bilirubin Urine Neg (Negative); Blood Urine Neg (Negative); Glucose Urine UA 4+ (Normal); Ketones Urine Negative (Negative); Leukocyte Esterase Urine Negative (Negative); Nitrate Urine Negative (Negative); RBC Urine 0-4 /hpf (0-2); Squamous Epithelial Cell Urine 0-4 /hpf (0-5); Sulfosalicylic Acid Urine Negative (Negative); Urobilinogen Urine 1 mg/dL (Negative); WBC Urine 0-4 /hpf (0-5)
[2022-09-14] MEDS: ketorolac 30 mg/mL INJ IVP (12:38)
== END 2022-09-14 13:42 | disposition home or self-care (01) ==
PROVIDERS: Emergency Provider Emergency Medicine; PCP Internal Medicine
DX: R07.89 Other chest pain (principal); R74.8 Abnormal levels of other serum enzymes; Z79.82 Long term (current) use of aspirin; Z79.4 Long term (current) use of insulin; Z79.84 Long term (current) use of oral hypoglycemic drugs; E11.9 Type 2 diabetes mellitus without complications; I10 Essential (primary) hypertension; E78.5 Hyperlipidemia, unspecified
CPT/HCPCS: 36415; 71045; 80053; 81001; 83690; 83880; 84484; 85025; 85610; 93005; 96374; 99285; J1885

== ENCOUNTER 2022-10-30 09:47 | Outpatient (CLI) | payer MEDICARE, MEDICAID, SELFPAY ==
--- NOTE | 2022-10-30 09:56 | CTR_ITS ---
PROCEDURE INFORMATION: Exam: CT Abdomen And Pelvis With Contrast Exam date and time: 10/30/2022 11:12 AM Age: 71 years old Clinical indication: Pain and abnormal findings; Abnormal lab test; Abdominal pain; Prior surgery; Surgery date: 6+ months; Surgery type: Gb, appy, hyst, bladder; Patient HX: Epigastric pain, elevated liver enzymes, PT states bladder has fallen again; Additional info: Epigastric abdominal pain/elevated liver enzymes TECHNIQUE: Imaging protocol: Computed tomography of the abdomen and pelvis with contrast. Radiation optimization: All CT scans at this facility use at least one of these dose optimization techniques: automated exposure control; mA and/or kV adjustment per patient size (includes targeted exams where dose is matched to clinical indication); or iterative reconstruction. Contrast material: OMNI 350; Contrast volume: 100 ml; Contrast route: INTRAVENOUS (IV); REPORTING DATA: Count of CT and Cardiac NM exams in prior 12 months: This patient has received 0 known CTs and 0 known cardiac nuclear medicine studies in the 12 months prior to the current study. COMPARISON: ES surgery / GI images 09/23/2021 12:42 PM RADIATION DOSE METRICS: Total DLP (mGy-cm): 373.21 FINDINGS: Liver: Normal. No mass. Gallbladder and bile ducts: There is mild intra and extrahepatic biliary ductal dilatation, likely secondary to post cholecystectomy status. No evidence of filling defect to suggest choledocholithiasis. Pancreas: Normal. No ductal dilation. Spleen: Normal. No splenomegaly. Adrenal glands: Normal. No mass. Kidneys and ureters: Symmetric enhancement of the kidneys. There is a 1.8 cm cyst in the left lower kidney. Additional bilateral subcentimeter foci of decreased attenuation are too small to characterize. Stomach and bowel: Unremarkable. No obstruction. No mucosal thickening. Appendix: There has been an appendectomy. Intraperitoneal space: Unremarkable. No free air. No significant fluid collection. Vasculature: Unremarkable. No abdominal aortic aneurysm. Lymph nodes: Unremarkable. No enlarged lymph nodes. Urinary bladder: Unremarkable as visualized. Reproductive: The uterus is surgically absent. Bones/joints: Mild levocurvature of the spine and multilevel degenerative changes seen. Soft tissues: Unremarkable. CT/CT abdomen pelvis w con* [id number] IMPRESSION: Mild intra hepatic biliary ductal dilatation, likely secondary to post cholecystectomy status. No stone identified. If there is concern for choledocholithiasis, MRCP should be considered. COMMENTS: Consistent with the [place] [employer]'s Incidental Findings Committee white paper (J Am Sloan Radiol 2018): Any incidental renal lesion less than 1 cm or classified as too small to characterize, or any incidental cystic renal lesion characterized as simple-appearing, is likely benign. No follow-up imaging is recommended for these lesions per consensus recommendations based on imaging criteria.
[2022-10-30] MEDS: iohexol 350 mg/mL 500 mL Btl (per mL) IV (10:20)
[2022-10-30] MEDS: iohexol 350 mg/mL 500 mL Btl (per mL) PO (10:20)
== END 2022-10-30 09:48 | disposition home or self-care (01) ==
PROVIDERS: PCP Internal Medicine; Visit Provider Internal Medicine
DX: R74.8 Abnormal levels of other serum enzymes (principal); K83.8 Other specified diseases of biliary tract
CPT/HCPCS: 74177; Q9967

== ENCOUNTER 2022-12-18 08:25 | Outpatient (CLI) | payer MEDICARE, SELFPAY ==
--- NOTE | 2022-12-18 09:00 | NMCV_ITS ---
NM marta perf SPECT r/s* [id number] Lady Reagan Age: 72 Gender: F : 1950 Exam Date: 12/18/2022 09:52 Ordering Phys: Jacque Moreno MD Technologist: DIRK Kamara Exam Location: [facility] Indications: CHEST PAIN STRESS TEST [facility] IMAGE PROTOCOL Rest/Stress 1 Lexiscan Day Radiopharmaceutical Dose (mCi) Administration Site Administered by Rest: Tc-99m 10.5 IV Eric Marques, AUTOMATIC CASTING MACHINE OPERATOR Sestamibi Stress:Tc-99m 32.5 IV Eric Marques, AUTOMATIC CASTING MACHINE OPERATOR Sestamibi Rest: 18-Dec-2022 60 Discovery 630 Stress: 18-Dec-2022 30 Discovery 630 0.4mg Lexiscan. Images obtained in supine and prone position. SPECT RESULTS Technical Quality: Excellent Raw Data Analysis: Normal Image Corrections: No attenuation or motion correction applied Summed Stress Score: 8 Summed Rest Score: 11 Summed Difference Score: 0 PERFUSION FINDINGS There is a large sized fixed perfusion defect noted in inferior, apical lateral and apical hood. 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 Attenation artifact can not be ruled out. FUNCTIONAL RESULTS (calculated via Gated SPECT) Stress Image LV EF (%): 83 Stress EDV (mL):54 TID: 1.58 Stress ESV (mL):9 FUNCTIONAL FINDINGS: There is normal left ventricular systolic function. TID ratio is elevated. IMPRESSIONS 1. Large sized areas of prior infarct noted in the inferior, apical lateral and apical hood. Attenuation artifact can not be ruled out. Clinical correlation is required. 2. LV systolic function is normal. TID ratio is elevated. Don Calhoun MD (Electronically Signed) Final Date: 22 December 2022 17:48 S
[2022-12-18 09:50] VITALS: BMI 24.5
--- NOTE | 2022-12-18 09:50 | ECG_ITS ---
[facility] Test Date: 2022-12-18 Pat Name: Lady Reagan Department: Room: Gender: Female Full Stack Engineer: Mana Jimenez : 1950 Requested By: Jacque Barrett Order Number: [id number] Oliver MD: Don Calhoun M.D. Interpretive Statements NAME OF STUDY: LEXISCAN SESTAMIBI STRESS TEST INDICATION: [Chest Pain] Procedure: At the baseline, the blood pressure was 185/65mmHg with a heart rate of 64 bpm. The electrocardiogram showed normal sinus rhythm, normal axis with occasional PVCs The Lexiscan was infused over a period of 20 seconds. A total of 0.4 mg of Lexiscan was infused. The stress phase was continued for a total of 5 minutes. Heart rate was at the end of stress phase was 76 bpm and a blood pressure of 164/81mmhg. The EKG at the peak infusion revealed normal sinus rhythm with no significant ST-T wave changes. Sestamibi was injected 20 seconds after the Lexiscan infusion. Blood pressure at the end of recovery phase was 167/82mmHg with a heart rate of 73 bpm. Conclusion: 1. Normal EKG response to Lexiscan infusion 2. No Lexiscan induced chest pain or cardiac arrhythmia. 3. Normal blood pressure and heart rate response. 4. Sestamibi/sestamibi perfusion scan pending; see separate report. Electronically Signed On 12-29-2022 10:48:29 CDT by Don Calhoun M.D. [id number]
[2022-12-18] MEDS: regadenoson 0.4 Mg/5 ml Syringe IVP (11:03)
[2022-12-18 11:20] VITALS: BP 167/82; PULSE 72
== END 2022-12-18 08:26 | disposition home or self-care (01) ==
LOC: CDL 08:27
PROVIDERS: PCP Internal Medicine; Visit Provider Internal Medicine
DX: R07.9 Chest pain, unspecified (principal)
CPT/HCPCS: 36415; 78452; 93017; 96374; A9500; J2785

== ENCOUNTER 2023-01-17 21:08 | Emergency (ER) | payer MEDICARE, MEDICAID, SELFPAY ==
[2023-01-17 21:13] VITALS: PULSE 66; RESP 17; TEMP 37; O2SAT 96; BMI 24.5
--- NOTE | 2023-01-17 21:20 | ECG_ITS ---
[facility] Test Date: 2023-01-17 Pat Name: Lady Reagan Department: Room: Gender: Female Body Line Finisher: : 1950 Requested By: Naresh Singh Order Number: [id number] Oliver MD: Don Calhoun M.D. Measurements Intervals [place] Rate: 65 P: 55 MT: 122 QRS: 35 QRSD: 100 T: 114 QT: 424 QTc: 443 Interpretive Statements SINUS RHYTHM NONSPECIFIC ST & T-WAVE ABNORMALITY Compared to ECG 09/14/2022 12:27:49 Possible ischemia no longer present T-wave abnormality still present Electronically Signed On 01-18-2023 8:20:41 CDT by Don Calhoun M.D. [id number]
--- NOTE | 2023-01-17 21:26 | ED_ITS ---
HPI - Chest Pain General: Chief Complaint: Shortness of Breath/Dyspnea Stated Complaint: BP high\Head Feels Weird Time Seen by Provider: 01/17/23 21:11 Source: patient Mode of arrival: ambulatory Limitations: no limitations History of Present Illness: This patient presents to our emergency department because she states that over the past week or so she has felt funny and lightheaded in the evenings. She states that approximately 9 days ago she saw her doctor who made some medication changes to include increasing lisinopril and metoprolol. She states that she has noted in the evenings when she takes her metoprolol she feels funny after taking that medication. She also apparently had a accidental fall when she landed on a skill saw on her left chest and she has been having chest soreness since that incident as well. She denies any fevers or chills. She states she has not been recently ill otherwise although her who is currently recovering from COVID-19. She has not had any infectious disease symptoms such as fever nausea vomiting diarrhea cough etc. She states she had a recent stress test that showed some to the bottom part of her heart. Associated symptoms: Deny abdominal pain, dyspnea, fever(s), nausea, palpitations or vomiting Review of Systems Const: Denies: fever(s) or chills ENMT: Denies: throat pain, odynophagia, nasal discharge or nasal congestion Card: Reports: chest pain; Denies: palpitations, irregular heart rhythm or edema Resp: Denies: dyspnea, productive cough or non-productive cough GI: Denies: abdominal pain, nausea, vomiting or diarrhea : Denies: flank pain, difficulty voiding or dysuria Musc: Denies: neck pain, back pain, extremity pain or extremity swelling Skin/Breast: Denies: rash Neuro: Denies: headache(s), numbness in extremities or weakness in extremities Adrian/Lymph: Denies: easy bruising or easy bleeding PFSH ED PFSH: Medical History Depression Diabetes Essential (primary) hypertension Hyperlipidemia Surgical History History of cholecystectomy History of tubal ligation 1985 Family History Sister Breast cancer Diabetes Hypertension Mother Diabetes Heart disease Hypercholesteremia Hypertension Stroke Brother Diabetes Hypercholesteremia Hypertension Denies family history of Colon cancer Ovarian cancer Bleeding disorder Uterine cancer Thyroid disease Physical Exam Narrative: EXAM NARRATIVE: The patient appears to be in no acute distress. She is appears comfortable. She answers questions appropriately. Const: COMMON NORMALS: no acute distress, average body habitus, patient oriented x3, healthy appearing and alert GENERAL APPEARANCE: cooperative and comfortable HENMT: COMMON NORMALS: normocephalic, Normal nasal mucous membranes and t urbinates present, moist oral mucous membranes and oropharynx normal HEAD & SCALP: normocephalic NOSE: Normal nasal mucous membranes and turbinates present Eye: COMMON NORMALS: Equal, round and reactive pupils present, EOMs intact bilaterally and conjunctivae normal CONJUNCTIVA: Yes conjunctivae normal PUPIL: Yes Equal, round and reactive pupils present Neck/C-Spine: COMMON NORMALS: full ROM, no lymphadenopathy and no JVD Chest: OTHER: She has tenderness in her left inferior chest to anterior palpation. No cre pitance, subcutaneous emphysema or ecchymosis are noted. Resp: COMMON NORMALS: normal respiratory effort, No retractions, No use of acc essory muscles and clear to auscultation bilaterally AUSCULTATION: clear to auscultation bilaterally Cardio: COMMON NORMALS: no JVD, regular rate, regular rhythm, No murmurs present (Cardio) and Peripheral pulses 2+ throughout RATE: regular rate RHYTHM: regular rhythm PERIPHERAL PULSES: Peripheral pulses 2+ throughout GI: COMMON NORMALS: Normal to inspection, nondistended, normoactive bowel sounds present, Soft to palpation and non-tender PALPATION: Yes Soft to palpation : COMMON NORMALS: Yes no CVA tenderness BLADDER/KIDNEY EXAM: Yes no CVA tenderness Back/Pelvis: COMMON NORMALS: no CVA tenderness, thoracic and lumbar spine normal to inspection, no thoracic nor lumbar tenderness and thoraco-lumbar ROM normal Extremity: COMMON NORMALS: normal to inspection, full ROM, capillary refill normal, no calf tenderness and no pedal edema Neuro: COMMON NORMALS: patient oriented x3, moves all extremities, no focal motor deficits and no sensory deficits noted SENSORIUM/ORIENTATION: Yes alert CRANIAL NERVES: Yes CN normal except as noted Psych: COMMON NORMALS: mental status grossly normal Skin: COMMON NORMALS: no rashes or lesions noted, no wounds and turgor normal GENERAL SKIN EXAM: no rashes or lesions noted and turgor normal Course Reevaluation(s): Reevaluation #1: Additional discussion with the patient revealed that she had been on metoprolol for a while and then her primary care doctor had increased it to 50 mg twice daily in addition to her hydrochlorothiazide HCTZ combination. Time: 22:10 Reevaluation #2: Pressure is already trending down some not precipitously but the trend is lower and I think putting her on amlodipine will be beneficial with her known coronary artery disease. Slowly reduce her systolic pressure and reduce her double product and subsequently workload on her heart. No evidence at this time to suggest ACS, pneumonia, heart failure etc. Time: 22:42 Vital Signs: Vital signs: Vital Signs Temperature 98.6 F 01/17/23 21:13 Pulse Rate 58 L 01/17/23 22:14 Respiratory Rate 16 01/17/23 22:14 Blood Pressure 197/79 01/17/23 22:14 Pulse Oximetry 94 01/17/23 22:14 Oxygen Delivery Me thod Room Air 01/17/23 21:13 MDM - Chest Pain Medical Decision Making This patient presented to our emergency department because she was concerned ab out she been feeling in the evenings over the past week or so. She states she felt lightheaded and funny most evenings and she is wondering if it is related to her blood pressure medication. She has a history of known coronary disease but has not had any sustained chest pain shortness of breath diaphoresis etc. She has had the above-noted symptoms. She apparently has been on hydrochlorothiazide and lisinopril combination as well as metoprolol and her metoprolol was recently increased. Her clinical examination reveals systolic hypertension in the range of 220. Her remainder of her clinical examination is reassuring. Work-up was engaged to ensure no evidence of acute ischemia, ACS, heart failure etc. at this time. Initial EKGs were nonspecific in their appearance but no acute ischemic changes. Her initial troponin was less than the URL as well as her BNP was on remarkable for high risk of heart failure. The remainder of her ancillary studies were also normal. Chest x-ray revealed normal heart size with no infiltrative process. Because of her known coronary artery disease and persistent hypertension was felt that amlodipine would be a good choice to help control her symptoms and blood pressure. She was given a dose of amlodipine in the emergency department which she tolerated well and was notable that her blood pressure already had responded some to that medication. It was felt that we will transition her to amlodipine in the evening and have her follow-up with her regular doctor in approximately 2 weeks or so to reassess her medications and determine the best regimen for her. She is being discharged in stable condition. Return precautions were discussed with both she and her daughter present. Medical Records I reviewed the patient's medical records. Notable for recent sestamibi scan that shows fixed perfusion defects in the apex system with likely prior IA. Lab Data I reviewed the patient's lab results. 01/17/23 21:30 01/17/23: Laboratory Results WBC 9.42 10^3/uL (3.29-11.43) 01/17/23: RBC 4.56 10^6/uL (3.85-5.65) 01/17/23: Hgb 12.70 g/dL (11.27-16.99) 01/17/23: Hct 38.6 % (36-47) 01/17/23: MCV 84.6 fl (85-98) L 01/17/23: MCH 27.9 pg (27-33) 01/17/23: MCHC 32.9 g/dL (30-55) 01/17/23: RDW 14.7 % (12.1-15.1) 01/17/23 21: Plt Count 255 10^3/cmm (157-399) 01/17/23: MPV 11.3 fL (7.4-10.4) H 01/17/23 21: Neut % (Auto) 51.3 % 01/17/23: Lymph % (Auto) 35.6 % 01/17/23: [place] % (Auto) 6.6 % 01/17/23: Eos % (Auto) 5.2 % 01/17/23: Baso % (Auto) 1.0 % 01/17/23: Neut # (Auto) 4.84 10^3/uL (1.8-7.7) 01/17/23: Lymph # (Auto) 3.4 10^3/uL (0.8-4.8) 01/17/23 21:30 [place] # (Auto) 0.6 10^3/uL (0.2-0.9) 01/17/23 21:30 Eos # (Auto) 0.5 10^3/uL (0.0-0.8) 01/17/23 21:30 Baso # (Auto) 0.1 10^3/uL (0.0-0.1) 01/17/23 21:30 Nucleated RBC % (auto) 0 % 01/17/23 21:30 Nucleated RBCs # 0.0 /100WBC 01/17/23 21:30 Sodium 139 mmol/L (136-145) 01/17/23 21:30 Potassium 4.1 mmol/L (3.5-5.1) 01/17/23 21:30 Chloride 101 mmol/L (98-107) 01/17/23 21:30 Carbon Dioxide 27 mmol/L (22-29) 01/17/23:30 Anion Gap 15.1 (5-19) 01/17/23 21:30 BUN 19 mg/dL (8-23) 01/17/23 21:30 Creatinine 0.8 mg/dL (0.5-0.9) 01/17/23 21:30 GFR Calculation Not Reportable 01/17/23: Glucose 142 mg/dL (65-115) H 01/17/23 21:30 Calculated Osmolality 293 mOsm/kg (285-295) 01/17/23:30 Calcium 9.7 mg/dL (8.5-10.5) 01/17/23 21:30 Total Bilirubin 0.2 mg/dL (0.15-1.2) 01/17/23 21:30 AST 16 U/L (0-32) 01/17/23 21:30 ALT 14 U/L (0-33) 01/17/23 21:30 Alkaline Phosphatase 129 U/L (35-105) H 01/17/23 21:30 Troponin T Baseline 10 ng/L (0-10) 01/17/23 21:30 NT-Pro-B Natriuret Pep 331 pg/mL (0-125) H 01/17/23 21:30 Total Protein 6.5 g/dL (6.6-8.7) L 01/17/23 21:30 Albumin 4.4 g/dL (3.5-5.2) 01/17/23 21:30 Globulin 2.1 g/dL (1.3-4.6) 01/17/23 21:30 Imaging Data CXR: I personally reviewed and interpreted this imaging study as follows: My impression: No infiltrative process, normal heart size. Otherwise no obvious acute process XR interpretation done by ED provider, pending radiology final review EKG Data EKG 1: I personally reviewed and interpreted this EKG as follows: Interpretation: Contemporaneous review of resting EKG reveals a ventricular rate of 65 bpm consistent with normal sinus rhythm. She has normal IL interval, normal QRS duration, normal corrected QT interval. Normal axis. Compared with August of this year there is flattening of the ST segments noted in the 07 22 and Discharge Plan Discharge Patient Disposition: Home Clinical Impression: Hypertension Condition: Stable Prescriptions: New amlodipine 5 mg tablet 5 mg PO DAILY Qty: 30 1RF No Action Allergy Relief (cetirizine) 10 mg capsule 10 mg PO DAILY PRN (Reason: Allergy Symptoms) lisinopril-hydrochlorothiazide 20-25 mg tablet 1 tab PO DAILY omeprazole 40 mg capsule,delayed release(DR/EC) 40 mg PO DAILY Jardiance 10 mg tablet 10 mg PO DAILY nortriptyline 50 mg capsule 50 mg PO DAILY gabapentin 100 mg capsule 100 mg PO DAILY atorvastatin 20 mg tablet 20 mg PO DAILY metformin 1,000 mg tablet 1,000 mg PO BID levothyroxine [Euthyrox] 50 mcg tablet 50 mcg PO DAILY Victoza 2-Omar 0.6 mg/0.1 mL (18 mg/3 mL) pen injector 1.2 mg SUBCUT DAILY Aspir-81 81 mg Tablet,Delayed Release (Dr/Ec) 81 mg PO DAILY insulin degludec [Tresiba FlexTouch U-200] 200 unit/mL (3 mL) insulin pen 62 unit SUBCUT DAILY Discharge Orders: Discharge ED (Routine); Ordered 01/17/23 Ordered By: Naresh Singh Referrals: Jacque Moreno MD [Primary Care Provider] - 2 weeks Discharge Diet: Low Salt Discharge Activity: Increase activity as tolerated Patient Instructions: Opioid Safety, Pain Management Activity Restrictions/Additional Instructions: As we discussed your evaluation in the emergency department did not find any evidence of heart attack, heart failure or other serious emergency condition at the time you were here. We did note that your blood pressure remained elevated and with your known history of coronary artery disease we recommend that we add amlodipine to help control your blood pressure. You should take your lisinopril hydrochlorothiazide as well as one of your metoprolol in the morning and in the evening take your amlodipine. You should follow-up with your doctor in the nex 2 weeks or so to reevaluate you and determine medications are for your condition. If you develop sustained chest pain, difficulty breathing or other concerns at any time you are welcome to return to the emergency department. Coding Level of Care Code ED Slitter Cut Off Operator for Mihai Ortega
[2023-01-17 21:41] LABS: Basophils # 0.1 10^3/uL (0.0-0.1); Eosinophils # 0.5 10^3/uL (0.0-0.8); Eosinophils % 5.2 %; Hematocrit 38.6 % (36-47); Lymphocytes # 3.4 10^3/uL (0.8-4.8); Lymphocytes % 35.6 %; Mean Corpuscular HGB Conc 32.9 g/dL (30-55); Mean Corpuscular Hemoglobin 27.9 pg (27-33); Mean Corpuscular Volume 84.6 fl (85-98); Mean Platelet Volume 11.3 fL (7.4-10.4); Monocytes # 0.6 10^3/uL (0.2-0.9); Monocytes % 6.6 %; Neutrophils # 4.84 10^3/uL (1.8-7.7); Neutrophils % 51.3 %; Nucleated Red Blood Cells % 0 %; Platelet Count 255 10^3/cmm (157-399); Red Blood Count 4.56 10^6/uL (3.85-5.65); Red Cell Distribution Width 14.7 % (12.1-15.1); White Blood Count 9.42 10^3/uL (3.29-11.43)
[2023-01-17 22:09] LABS: Troponin(5th) Baseline 10 ng/L (0-10)
--- NOTE | 2023-01-17 22:09 | XRR_ITS ---
PROCEDURE INFORMATION: Exam: XR Chest Exam date and time: 01/17/2023 10:22 PM Age: 72 years old Clinical indication: Condition or disease; Shortness of breath; Patient HX: Hypertension; Chest pain; SOB TECHNIQUE: Imaging protocol: Radiologic exam of the chest. Views: 1 view. COMPARISON: CR XR chest 1V portable [id number] 09/14/2022 9:24 AM FINDINGS: Lungs: Unremarkable. No consolidation. Pleural spaces: Unremarkable. No pleural effusion. No pneumothorax. Heart/Mediastinum: Unremarkable. No cardiomegaly. A few minute calcified lung nodules are seen incidentally. Bones/joints: Unremarkable. XR/XR chest 1V portable [id number] IMPRESSION: No acute findings.
[2023-01-17] MEDS: amlodipine 5 mg Tablet PO (22:12)
[2023-01-17 22:14] VITALS: BP 197/79; PULSE 58; RESP 16; O2SAT 94
[2023-01-17 22:16] LABS: Alanine Aminotransferase 14 U/L (0-33); Albumin Level 4.4 g/dL (3.5-5.2); Alkaline Phosphatase 129 U/L (35-105); Anion Gap 15.1 (5-19); Aspartate Amino Transferase 16 U/L (0-32); Blood Urea Nitrogen 19 mg/dL (8-23); Calcium 9.7 mg/dL (8.5-10.5); Carbon Dioxide 27 mmol/L (22-29); Chloride 101 mmol/L (98-107); Globulin 2.1 g/dL (1.3-4.6); Glucose 142 mg/dL (65-115); Osmolality Calculated 293 mOsm/kg (285-295); Potassium 4.1 mmol/L (3.5-5.1); Sodium 139 mmol/L (136-145); Total Bilirubin 0.2 mg/dL (0.15-1.2); Total Protein 6.5 g/dL (6.6-8.7)
[2023-01-17 22:34] LABS: NT Pro B Type Natriuretic Pept 331 pg/mL (0-125)
[2023-01-17 22:53] VITALS: BP 157/82; PULSE 58; RESP 16; TEMP 37; O2SAT 94
== END 2023-01-17 22:55 | disposition home or self-care (01) ==
PROVIDERS: Emergency Provider Emergency Medicine; PCP Internal Medicine
DX: I10 Essential (primary) hypertension (principal); Z79.82 Long term (current) use of aspirin; Z79.84 Long term (current) use of oral hypoglycemic drugs; Z79.4 Long term (current) use of insulin; E11.9 Type 2 diabetes mellitus without complications; E78.5 Hyperlipidemia, unspecified
CPT/HCPCS: 36415; 71045; 80053; 83880; 84484; 85025; 93005; 99285

== ENCOUNTER 2023-01-24 05:17 | Emergency (ER) | payer MEDICARE, MEDICAID, SELFPAY ==
[2023-01-24] VITALS (7 sets, daily range): BP systolic 130–156; BP diastolic 76–100; PULSE 73–117; RESP 14–20; TEMP 36.7; O2SAT 97–100; BMI 23.9
--- NOTE | 2023-01-24 05:36 | XRR_ITS ---
PROCEDURE INFORMATION: Exam: XR Chest Exam date and time: 01/24/2023 5:40 AM Age: 72 years old Clinical indication: Shortness of breath; Prior surgery; Surgery date: 6+ months; Surgery type: Gb; Patient HX: C/O SOB. TECHNIQUE: Imaging protocol: Radiologic exam of the chest. Views: 1 view. COMPARISON: CR (CHEST, ) 01/17/2023 10:22 PM FINDINGS: Lungs: Unremarkable. No consolidation. Pleural spaces: Unremarkable. No pleural effusion. No pneumothorax. Heart/Mediastinum: Unremarkable. No cardiomegaly. Bones/joints: Unremarkable. XR/XR chest 1V portable [id number] IMPRESSION: No acute findings.
--- NOTE | 2023-01-24 06:20 | ED_ITS ---
HPI - SOB/Dyspnea General: Chief Complaint: Shortness of Breath/Dyspnea Stated Complaint: sob Time Seen by Provider: 01/24/23 05:32 History of Present Illness: HPI Narrative: 72-year-old lady who was diagnosed with COVID-19 on Wednesday. She has had a dry cough, shortness of breath, worse with exertion, and some chest discomfort on and off since that time. Associated symptoms: Reports abdominal pain, chest pain and nausea; Deny fever(s), palpitations or vomiting Review of Systems Const: Denies: fever(s) Eyes: Denies: change in vision ENMT: Denies: throat pain Card: Reports: chest pain; Denies: palpitations Resp: Reports: dyspnea and non-productive cough GI: Reports: abdominal pain and nausea; Denies: vomiting PFSH ED PFSH: Medical History Depression Diabetes Essential (primary) hypertension Hyperlipidemia Surgical History History of cholecystectomy History of tubal ligation 1985 Family History Sister Breast cancer Diabetes Hypertension Mother Diabetes Heart disease Hypercholesteremia Hypertension Stroke Brother Diabetes Hypercholesteremia Hypertension Denies family history of Colon cancer Ovarian cancer Bleeding disorder Uterine cancer Thyroid disease Physical Exam Const: GENERAL APPEARANCE: not ill appearing and not frail appearing HENMT: COMMON NORMALS: normocephalic, atraumatic and Normal external nose present HEAD & SCALP: normocephalic and atraumatic FACE & SINUS: normal facial exam NOSE: Normal external nose present and Normal nares present Eye: COMMON NORMALS: Equal, round and reactive pupils present and EOMs intact bilaterally PUPIL: Yes Equal, round and reactive pupils present Neck/C-Spine: GENERAL: Yes trachea midline Chest: CHEST: Yes Symmetrical chest wall rise Resp: COMMON NORMALS: normal respiratory effort, No retractions, No use of accessory muscles and clear to auscultation bilaterally AUSCULTATION: clear to auscultation bilaterally Cardio: COMMON NORMALS: regular rate and regular rhythm RATE: regular rate RHYTHM: regular rhythm GI: COMMON NORMALS: Normal to inspection, nondistended, normoactive bowel sounds present Extremity: COMMON NORMALS: no pedal edema Neuro: MALDONADO COMA SCALE: document GCS findings Brogan coma scale eye opening: Spontaneous Maldonado coma scale verbal response: Orientated Brogan coma scale motor response: Obey commands Maldonado coma scale total score: 15 Psych: COMMON NORMALS: mental status grossly normal Course Vital Signs: Vital signs: Vital Signs Temperature 98.1 F 01/24/23 05:23 Pulse Rate 73 10 07:44 Respiratory Rate 18 01/24/23 07:44 Blood Pressure 130/76 01/24/23 07:44 Pulse Oximetry 97 01/24/23 07:44 Oxygen Delivery Me thod Room Air 01/24/23 07:00 MDM - SOB/Dyspnea Medical Decision Making 72-year-old female with a history of COVID-19. Chest x-ray is clear. Saturations are 98% on room air. Respirations are 18. Pulse is 70 blood pressure 141/73. Patient has multiple medical problems. Serum work-up to include differential of anemia, renal failure, etc. Work-up shows nonremarkable laboratory. She feels significantly improved after DuoNeb treatment here. She will be discharged with small dose of dexamethasone, doxycycline, and albuterol inhaler. Instructions given. She knows to return for any worsening symptoms despite treatment. Lab Data 01/24/23 06:24 01/24/23 06:24 Labs/Radiology: Radiology Impressions Chest X-Ray 01/24/23 05:36 IMPRESSION: No acute findings. Laboratory Results WBC 5.41 10^3/uL (3.29-11.43) 01/24/23 06:24 RBC 4.42 10^6/uL (3.85-5.65) 01/24/23 06:24 Hgb 12.30 g/dL (11.27-16.99) 01/24/23 06:24 Hct 36.6 % (36-47) 01/24/23 06:24 MCV 82.8 fl (85-98) L 01/24/23 06:24 MCH 27.8 pg (27-33) 01/24/23 06:24 MCHC 33.6 g/dL (30-55) 01/24/23 06:24 RDW 14.6 % (12.1-15.1) 01/24/23 06:24 Plt Count 200 10^3/cmm (157-399) 01/24/23 06:24 MPV 11.3 fL (7.4-10.4) H 01/24/23 06:24 Neut % (Auto) 49.8 % 01/24/23 06:24 Lymph % (Auto) 36.0 % 01/24/23 06:24 [place] % (Auto) 8.1 % 01/24/23 06:24 Eos % (Auto) 4.8 % 01/24/23 06:24 Baso % (Auto) 0.7 % 01/24/23 06:24 Neut # (Auto) 2.69 10^3/uL (1.8-7.7) 01/24/23 06:24 Lymph # (Auto) 2.0 10^3/uL (0.8-4.8) 01/24/23 06:24 [place] # (Auto) 0.4 10^3/uL (0.2-0.9) 01/24/23 06:24 Eos # (Auto) 0.3 10^3/uL (0.0-0.8) 01/24/23 06:24 Baso # (Auto) 0.0 10^3/uL (0.0-0.1) 01/24/23 06:24 Nucleated RBC % (auto) 0 % 01/24/23 06:24 Nucleated RBCs # 0.0 /100WBC 01/24/23 06:24 Sodium 137 mmol/L (136-145) 01/24/23 06:24 Potassium 3.5 mmol/L (3.5-5.1) 01/24/23 06:24 Chloride 100 mmol/L (98-107) 01/24/23 06:24 Carbon Dioxide 26 mmol/L (22-29) 01/24/23 06:24 Anion Gap 14.5 (5-19) 01/24/23 06:24 BUN 15 mg/dL (8-23) 01/24/23 06:24 Creatinine 0.7 mg/dL (0.5-0.9) 01/24/23 06:24 GFR Calculation Not Reportable 01/24/23 06:24 Glucose 126 mg/dL (65-115) H 01/24/23 06:24 Calculated Osmolality 286 mOsm/kg (285-295) 01/24/23 06:24 Calcium 9.0 mg/dL (8.5-10.5) 01/24/23 06:24 Total Bilirubin 0.3 mg/dL (0.15-1.2) 01/24/23 06:24 AST 20 U/L (0-32) 01/24/23 06:24 ALT 19 U/L (0-33) 01/24/23 06:24 Alkaline Phosphatase 96 U/L (35-105) 01/24/23 06:24 Total Protein 6.4 g/dL (6.6-8.7) L 01/24/23 06:24 Albumin 3.7 g/dL (3.5-5.2) 01/24/23 06:24 Globulin 2.7 g/dL (1.3-4.6) 01/24/23 06:24 All radiology interpretation(s) finalized by discharge Discharge Plan Discharge Patient Disposition: Home Clinical Impression: Acute bronchitis, COVID-19 Condition: Stable Prescriptions: New albuterol sulfate 90 mcg/actuation HFA aerosol inhaler 2 inh INHALATION Q4H PRN (Reason: shortness of breath or wheezing) Qty: 6.7 1RF dexamethasone 6 mg tablet 6 mg PO DAILY Qty: 5 0RF doxycycline hyclate 100 mg tablet 100 mg PO BID 7 Days Qty: 14 0RF No Action Allergy Relief (cetirizine) 10 mg capsule 10 mg PO DAILY PRN (Reason: Allergy Symptoms) lisinopril-hydrochlorothiazide 20-25 mg tablet 1 tab PO DAILY omeprazole 40 mg capsule,delayed release(DR/EC) 40 mg PO DAILY Jardiance 10 mg tablet 10 mg PO DAILY nortriptyline 50 mg capsule 50 mg PO DAILY gabapentin 100 mg capsule 100 mg PO DAILY atorvastatin 20 mg tablet 20 mg PO DAILY metformin 1,000 mg tablet 1,000 mg PO BID levothyroxine [Euthyrox] 50 mcg tablet 50 mcg PO DAILY Victoza 2-Omar 0.6 mg/0.1 mL (18 mg/3 mL) pen injector 1.2 mg SUBCUT DAILY Aspir-81 81 mg Tablet,Delayed Release (Dr/Ec) 81 mg PO DAILY insulin degludec [Tresiba FlexTouch U-200] 200 unit/mL (3 mL) insulin pen 62 unit SUBCUT DAILY amlodipine 5 mg tablet 5 mg PO DAILY Qty: 30 1RF Discharge Orders: Discharge ED (Routine); Ordered 01/24/23 Ordered By: Gume Cantor Referrals: Jacque Moreno MD [Primary Care Provider] - 4-7 days Patient Instructions: Acute Bronchitis (ED), COVID-19 (Coronavirus Disease 2019 ) (ED) Activity Restrictions/Additional Instructions: Use the inhaler you are prescribed every 4 hours while awake scheduled for the first 48 hours, then as needed following. Other medications as directed. Watch your blood sugar, as it will likely rise on medication for the next few days. Return for worsening symptoms despite treatment. Coding Level of Care Code ED Intelligence Research Specialist for Mihai Ortega
[2023-01-24] MEDS: ipratropium-albuterol 3 mL Neb INHALATION (06:31)
[2023-01-24 06:42] LABS: Basophils % 0.7 %; Eosinophils # 0.3 10^3/uL (0.0-0.8); Eosinophils % 4.8 %; Hematocrit 36.6 % (36-47); Mean Corpuscular HGB Conc 33.6 g/dL (30-55); Mean Corpuscular Hemoglobin 27.8 pg (27-33); Mean Corpuscular Volume 82.8 fl (85-98); Mean Platelet Volume 11.3 fL (7.4-10.4); Monocytes # 0.4 10^3/uL (0.2-0.9); Monocytes % 8.1 %; Neutrophils # 2.69 10^3/uL (1.8-7.7); Neutrophils % 49.8 %; Nucleated Red Blood Cells % 0 %; Platelet Count 200 10^3/cmm (157-399); Red Blood Count 4.42 10^6/uL (3.85-5.65); Red Cell Distribution Width 14.6 % (12.1-15.1); White Blood Count 5.41 10^3/uL (3.29-11.43)
[2023-01-24] MEDS: hydroCHLOROthiazide 25 mg Tablet PO (06:55)
[2023-01-24] MEDS: lisinopril 20 mg Tablet PO (06:55)
[2023-01-24 07:09] LABS: Alanine Aminotransferase 19 U/L (0-33); Albumin Level 3.7 g/dL (3.5-5.2); Alkaline Phosphatase 96 U/L (35-105); Anion Gap 14.5 (5-19); Aspartate Amino Transferase 20 U/L (0-32); Blood Urea Nitrogen 15 mg/dL (8-23); Carbon Dioxide 26 mmol/L (22-29); Chloride 100 mmol/L (98-107); Globulin 2.7 g/dL (1.3-4.6); Glucose 126 mg/dL (65-115); Osmolality Calculated 286 mOsm/kg (285-295); Potassium 3.5 mmol/L (3.5-5.1); Sodium 137 mmol/L (136-145); Total Bilirubin 0.3 mg/dL (0.15-1.2); Total Protein 6.4 g/dL (6.6-8.7)
--- NOTE | 2023-01-24 07:24 | ECG_ITS ---
[facility] Test Date: 2023-01-24 Pat Name: Lady Reagan Department: Room: Gender: Female Technical Associate: : [id number] Requested By: Gume Gagnon Order Number: [id number] Oliver MD: Don Calhoun M.D. Measurements Intervals Arthur Rate: 69 P: 47 [place]: 138 QRS: 22 QRSD: 93 T: 118 QT: 406 QTc: 436 Interpretive Statements SINUS RHYTHM NONSPECIFIC T-WAVE ABNORMALITY Compared to ECG 01/17/2023 21:16:10 No significant changes Electronically Signed On 01-24-2023 22:52:45 CDT by Don Calhoun M.D. [id number]
[2023-01-24] MEDS: ondansetron 2 mg/ML SDV 2 mL 4 MG IVP (07:38)
== END 2023-01-24 07:48 | disposition home or self-care (01) ==
PROVIDERS: Emergency Provider Emergency Medicine; PCP Internal Medicine
DX: U07.1 COVID-19 (principal); J20.8 Acute bronchitis due to other specified organisms; Z79.82 Long term (current) use of aspirin; Z79.4 Long term (current) use of insulin; Z79.84 Long term (current) use of oral hypoglycemic drugs; E11.9 Type 2 diabetes mellitus without complications; I10 Essential (primary) hypertension; E78.5 Hyperlipidemia, unspecified
CPT/HCPCS: 71045; 80053; 85025; 93005; 94640; 96374; 99285; J2405

== ENCOUNTER 2024-09-29 10:09 | Outpatient (CLI) | payer MEDICARE, MEDICAID, SELFPAY ==
--- NOTE | 2024-09-29 10:17 | CTR_ITS ---
PROCEDURE INFORMATION: Exam: CT Chest With Contrast; Diagnostic Exam date and time: 09/29/2024 11:19 AM Age: 73 years old Clinical indication: Abnormal findings; Abnormal lab test; Elevated liver enzymes; Abnormal diagnostic tests; Prior surgery; Surgery date: 6+ months; Surgery type: Gall bladder; Additional info: Supraclavicular lymphadenopathy/elevated liver enzymes TECHNIQUE: Imaging protocol: Diagnostic computed tomography of the chest with contrast. Radiation optimization: All CT scans at this facility use at least one of these dose optimization techniques: automated exposure control; mA and/or kV adjustment per patient size (includes targeted exams where dose is matched to clinical indication); or iterative reconstruction. Contrast material: OMNI 350; Contrast volume: 100 ml; Contrast route: INTRAVENOUS (IV); COMPARISON: CR (CHEST, ) 01/24/2023 5:40 AM RADIATION DOSE METRICS: Total DLP (mGy-cm): 655.18 FINDINGS: Lungs: Unremarkable. No consolidation. No masses. Pleural spaces: Unremarkable. No pneumothorax. No pleural effusion. Heart: Unremarkable. No cardiomegaly. No pericardial effusion. Lymph nodes: Unremarkable. No enlarged lymph nodes. Vasculature: Unremarkable. No aortic aneurysm. Bones/joints: Unremarkable. No acute fracture. Soft tissues: Unremarkable. PROCEDURE INFORMATION: Exam: CT Abdomen With Contrast Exam date and time: 09/29/2024 11:19 AM Age: 73 years old Clinical indication: Abnormal findings; Abnormal lab test; Elevated liver enzymes; Abnormal diagnostic tests; Prior surgery; Surgery date: 6+ months; Surgery type: Gall bladder; Additional info: Supraclavicular lymphadenopathy/elevated liver enzymes TECHNIQUE: Imaging protocol: Computed tomography of the abdomen with contrast. Radiation optimization: All CT scans at this facility use at least one of these dose optimization techniques: automated exposure control; mA and/or kV adjustment per patient size (includes targeted exams where dose is matched to clinical indication); or iterative reconstruction. Contrast material: OMNI 350; Contrast volume: 100 ml; Contrast route: INTRAVENOUS (IV); COMPARISON: CT abdomen pelvis w con* [id number] 10/30/2022 11:12 AM RADIATION DOSE METRICS: Total DLP (mGy-cm): 655.18 FINDINGS: Liver: Normal. No mass. Gallbladder and biliary ducts: Cholecystectomy. Pancreas: Normal. No ductal dilation. Spleen: Normal. No splenomegaly. Adrenal glands: Normal. No mass. Kidneys: Normal. No hydronephrosis. Stomach and bowel: Visualized stomach and bowel are unremarkable. No obstruction. No mucosal thickening. Intraperitoneal space: Unremarkable. No free air. No significant fluid collection. Vasculature: Unremarkable. No abdominal aortic aneurysm. Lymph nodes: Unremarkable. No enlarged lymph nodes. Bones/joints: Unremarkable. No acute fracture. No dislocation. Soft tissues: Increased soft tissue density in subcutaneous fat abutting the skin surface inferior to the umbilicus, this may represent inflammation or some other infiltrative process. Correlate clinically. CT/CT chest abd w con*[id number] IMPRESSION: No acute findings. IMPRESSION: 1. No acute findings. 2. Increased soft tissue density in the subcutaneous fat of the lower abdomen, incompletely imaged. Correlate clinically.
[2024-09-29] MEDS: iohexol 350 mg/mL 500 mL Btl (per mL) IV (12:06)
[2024-09-29] MEDS: iohexol 350 mg/mL 500 mL Btl (per mL) PO (12:07)
[2024-09-29 12:26] LABS: Blood Urea Nitrogen 15 mg/dL (8-23)
== END 2024-09-29 10:10 | disposition home or self-care (01) ==
PROVIDERS: PCP Internal Medicine; Visit Provider Internal Medicine
DX: R59.0 Localized enlarged lymph nodes (principal)
CPT/HCPCS: 71260; 74160; 82565; 84520